=== PATIENT | male | born 1990 | race Two or more races ===

== ENCOUNTER 2016-07-16 11:00 | Emergency (ER) | payer SELFPAY ==
--- NOTE | 2016-07-16 12:15 | RAD ---
07/16/2016 12:08 PM CHEST - 2 VIEWS History: Right-sided chest pain since yesterday. Worsening today. Comparison: 09/25/2012 Findings: Two views of the chest are obtained. The lungs are clear with out effusion or pneumothorax. The cardiomediastinal silhouette is unremarkable.. The osseous structures are intact.. IMPRESSION: No acute intrathoracic process.
[2016-07-16] MEDS ORDERED: IBUPROFEN 800 MG TABLET ONE (12:40)
== END 2016-07-16 13:03 | disposition home or self-care (01) ==
LOC: ED 11:00 → EDBD 11:00 → ED 13:03
DX: R07.9 Chest pain, unspecified (principal); I10 Essential (primary) hypertension
CPT/HCPCS: 71020; 99283 ×2; 93005; A9270